=== PATIENT | female | born 1945 | race Two or more races ===

== ENCOUNTER 2018-06-13 14:08 | Inpatient (IN) | payer MEDICARE, MEDICAID, OTHER ==
[~2018-06-13] VITALS: Ht 153.4 cm; Wt 68.9 kg
[2018-06-13] MEDS ORDERED: ACETAMINOPHEN 325MG TABLET PO STA (14:35)
[2018-06-13] MEDS ORDERED: SODIUM CHLORIDE 0.9% 1000ML BAG (SEPSIS BOLUS) IV ONE (14:45)
[2018-06-13 15:18] LABS: HEMATOCRIT. 37.3 % (36.0-48.0); HEMOGLOBIN. 12.9 g/dL (12.0-16.0); MEAN CORPUSCULAR HEMOGLOBIN 35.6 pg (28.0-32.0); MEAN CORPUSCULAR VOLUME 102.6 fL (81.0-99.0); MEAN PLATELET VOLUME 7.9 fl (7.4-10.4); PLATELET 161 x1000/uL (130-400); RED BLOOD CELL COUNT 3.63 mill/uL (4.2-5.4); RED CELL DISTRIBUTION WIDTH 11.9 % (11.6-14.6)
[2018-06-13 15:25] LABS: CHLORIDE 100 mEq/L (98-107); INR 1.1; PARTIAL THROMBOPLASTIN TIME 29.4 sec (23.4-31.0); PROTHROMBIN TIME 10.7 sec (9.1-11.1)
[2018-06-13 15:45] LABS: PLATELET ESTIMATE NORMAL
[2018-06-13] MEDS ORDERED: OSELTAMIVIR 75MG CAPSULE PO ONE (16:00)
[2018-06-13 16:22] LABS: CLARITY URINE CLEAR (CLEAR); COLOR URINE YELLOW (YELLOW); KETONES URINE TRACE (NEGATIVE); LEUKOCYTE ESTERASE URINE 1+ (NEGATIVE); NITRITE URINE NEGATIVE (NEGATIVE); OCCULT BLOOD URINE 1+ (NEGATIVE); PH URINE 5.5 (4.5-8.0); PROTEIN URINE NEGATIVE (NEGATIVE); SPECIFIC GRAVITY URINE 1.011 (1.005-1.030); UROBILINOGEN URINE 0.2 E.U./dL (0.2-1.0)
[2018-06-13] MEDS ORDERED: MORPHINE SULFATE 4 MG/ML CPJ (NOT FOR IM USE) IV STA (16:40)
[2018-06-13] MEDS ORDERED: ONDANSETRON HCL 4MG/2ML INJ IV STA (16:40)
[2018-06-13] MEDS ORDERED: LEVOFLOXACIN 750MG PREMIX 150 ML IV ONE (16:45)
[2018-06-13] MEDS ORDERED: ENOXAPARIN 80MG/0.8ML SYR SUBCUT ONE (16:45)
[2018-06-13] MEDS ORDERED: ASPIRIN 325MG EC TABLET PO ONE (16:45)
[2018-06-13] MEDS ORDERED: NITROGLYCERIN 0.4MG TABLET SL SL PRN (17:45)
[2018-06-13] MEDS ORDERED: CLONIDINE 0.1MG TABLET PO PRN (17:45)
[2018-06-13] MEDS ORDERED: MAGNESIUM/ALUMINUM HYDROXIDE/SIMETHICONE 30ML UDC PO PRN (17:45)
[2018-06-13] MEDS ORDERED: DOCUSATE SODIUM 100MG CAPSULE PO PRN (17:45)
[2018-06-13] MEDS ORDERED: DEXTROSE 50% WATER 50ML SYRINGE IV PRN (17:45)
[2018-06-13] MEDS ORDERED: GUAIFENESIN 200MG/10ML SUGAR FREE UDC PO PRN (17:45)
[2018-06-13] MEDS ORDERED: ACETAMINOPHEN 325MG TABLET PO PRN (17:45)
[2018-06-13] MEDS ORDERED: IPRATROPIUM/ALBUTEROL 0.5-3(2.5)MG/3ML NEB INH PRN (17:45)
[2018-06-13 21:00] VITALS: BP 80/58
[2018-06-13] MEDS: INSULIN LISPRO 100 UNITS/ML SUBCUT SCH (21:00)
[2018-06-13] MEDS ORDERED: ZOLPIDEM TARTRATE 5MG TABLET PO PRN (21:30)
[2018-06-13] MEDS: BLOOD SUGAR DIAGNOSTIC STRIP TEST SCH (21:56)
[2018-06-13 22:00] VITALS: BP_SYST 100; BP_SYST 160; BP_DIAS 84; BP_DIAS 89
[2018-06-13] MEDS: ASCORBIC ACID 500 MG TABLET PO SCH (22:15)
[2018-06-13] MEDS: FAMOTIDINE 20MG TABLET PO SCH (22:15)
[2018-06-13] MEDS: CEFTRIAXONE 1 G PREMIX 50 ML IV SCH (22:23)
[2018-06-13] MEDS: SODIUM CHLORIDE 0.9% 1,000 ML IV SCH (22:23)
[2018-06-13] MEDS ORDERED: ENOXAPARIN 60MG/0.6ML SYR SUBCUT SCH (22:30)
[2018-06-13] MEDS ORDERED: SODIUM CHLORIDE 0.9% 100 ML IV ONE (23:00)
[2018-06-13] MEDS ORDERED: SODIUM CHLORIDE 0.9% 500 ML IV ONE (23:15)
[2018-06-14] VITALS (12 sets, daily range): BP systolic 90–136; BP diastolic 41–81
[2018-06-14] MEDS: ALBUMIN HUMAN 25GM/100ML (25%) IV SCH ×3 (01:05→16:20)
[2018-06-14] MEDS ORDERED: FURO20TA4 MT (01:59)
[2018-06-14] MEDS ORDERED: OMEP20CA10 MT (01:59)
[2018-06-14] MEDS ORDERED: ASPI-1159 MT (01:59)
[2018-06-14] MEDS ORDERED: GABA-529 MT (01:59)
[2018-06-14] MEDS ORDERED: SIMV40TA5 MT (01:59)
[2018-06-14] MEDS ORDERED: METF-815 MT (01:59)
[2018-06-14] MEDS: SODIUM CHLORIDE 0.9% 1,000 ML IV SCH ×2 (06:54→18:44)
[2018-06-14] MEDS: INSULIN LISPRO 100 UNITS/ML SUBCUT SCH ×4 (07:53→20:53)
[2018-06-14] MEDS: BLOOD SUGAR DIAGNOSTIC STRIP TEST SCH ×4 (07:53→20:32)
[2018-06-14] MEDS: FAMOTIDINE 20MG TABLET PO SCH ×2 (08:41→20:31)
[2018-06-14] MEDS: ASCORBIC ACID 500 MG TABLET PO SCH ×2 (08:41→20:31)
[2018-06-14] MEDS: ZINC SULFATE 220 MG ( 50 ) CAPSULE PO SCH (08:41)
[2018-06-14] MEDS: ASPIRIN 325MG EC TABLET PO SCH (08:41)
[2018-06-14] MEDS: TRAMADOL 50MG TABLET PO PRN ×2 (08:41→13:43)
[2018-06-14] MEDS: ONDANSETRON HCL 4MG/2ML INJ IV PRN ×3 (09:46→20:13)
[2018-06-14] MEDS: ENOXAPARIN 80MG/0.8ML SYR SUBCUT SCH ×2 (11:54→23:00)
[2018-06-14] MEDS ORDERED: PNEUMOCOCCAL 23-VAL P-SAC VAC 0.5 ML IM ONE (12:00)
[2018-06-14 12:01] LABS: BASOPHILS % 0.3 % (0.0-2.0); EOSINOPHILS % 0.3 % (0.0-5.0); HEMATOCRIT. 29.4 % (36.0-48.0); HEMOGLOBIN. 10.2 g/dL (12.0-16.0); LYMPHOCYTES % 9.8 % (20.0-50.0); MEAN CORPUSCULAR VOLUME 103.5 fL (81.0-99.0); MEAN PLATELET VOLUME 7.8 fl (7.4-10.4); MONOCYTES % 9.7 % (2.0-8.0); NEUTROPHILS % 79.9 % (40.0-76.0); PLATELET 113 x1000/uL (130-400); RED BLOOD CELL COUNT 2.84 mill/uL (4.2-5.4); RED CELL DISTRIBUTION WIDTH 11.9 % (11.6-14.6)
[2018-06-14 12:33] LABS: CHLORIDE 107 mEq/L (98-107)
[2018-06-14] MEDS: MORPHINE SULFATE 4 MG/ML CPJ (NOT FOR IM USE) IV PRN (14:41)
[2018-06-14] MEDS ORDERED: LEVOFLOXACIN 500MG PREMIX 100 ML IV SCH (17:30)
[2018-06-14] MEDS ORDERED: MAGNESIUM 2 G PREMIX 50 ML IV NR (18:30)
[2018-06-14] MEDS: LEVOFLOXACIN 500MG PREMIX 100 ML IV SCH (20:31)
[2018-06-15] VITALS (43 sets, daily range): BP systolic 77–212; BP diastolic 17–142
[2018-06-15] MEDS: CEFTRIAXONE 1 G PREMIX 50 ML IV SCH (00:58)
[2018-06-15] MEDS: ONDANSETRON HCL 4MG/2ML INJ IV PRN ×2 (05:51→10:45)
[2018-06-15 07:55] LABS: BASOPHILS % 0.1 % (0.0-2.0); HEMATOCRIT. 28.3 % (36.0-48.0); HEMOGLOBIN. 9.7 g/dL (12.0-16.0); LYMPHOCYTES % 8.1 % (20.0-50.0); MEAN CORPUSCULAR HEMOGLOBIN 35.2 pg (28.0-32.0); MEAN CORPUSCULAR VOLUME 103.1 fL (81.0-99.0); MEAN PLATELET VOLUME 8.2 fl (7.4-10.4); MONOCYTES % 7.1 % (2.0-8.0); NEUTROPHILS % 84.7 % (40.0-76.0); PLATELET 120 x1000/uL (130-400); RED BLOOD CELL COUNT 2.74 mill/uL (4.2-5.4); RED CELL DISTRIBUTION WIDTH 11.7 % (11.6-14.6)
[2018-06-15 07:57] LABS: CHLORIDE 103 mEq/L (98-107)
[2018-06-15] MEDS: BLOOD SUGAR DIAGNOSTIC STRIP TEST SCH ×4 (07:58→21:31)
[2018-06-15] MEDS: ASCORBIC ACID 500 MG TABLET PO SCH ×2 (08:00→21:27)
[2018-06-15] MEDS: ASPIRIN 325MG EC TABLET PO SCH (08:00)
[2018-06-15] MEDS: FAMOTIDINE 20MG TABLET PO SCH ×2 (08:00→21:27)
[2018-06-15] MEDS: ZINC SULFATE 220 MG ( 50 ) CAPSULE PO SCH (08:00)
[2018-06-15] MEDS: INSULIN LISPRO 100 UNITS/ML SUBCUT SCH ×4 (08:00→21:31)
[2018-06-15] MEDS: SODIUM CHLORIDE 0.9% 1,000 ML IV SCH ×2 (09:10→22:54)
[2018-06-15] MEDS ORDERED: HEPARIN SODIUM 1,000 UNIT/1ML VIAL IV ONE (10:11)
[2018-06-15] MEDS: ENOXAPARIN 80MG/0.8ML SYR SUBCUT SCH (11:42)
[2018-06-15] MEDS: METOCLOPRAMIDE HCL 5MG TABLET PO SCH ×2 (12:07→17:28)
[2018-06-15] MEDS: MORPHINE SULFATE 4 MG/ML CPJ (NOT FOR IM USE) IV PRN ×3 (13:01→22:07)
[2018-06-15] MEDS ORDERED: IOHEXOL-300 100 ML BOTTLE ONE ×2 (14:43→15:39)
[2018-06-15] MEDS ORDERED: LIDOCAINE HCL 1% 20ML VIAL (Pyxis) INJ ONE (14:44)
[2018-06-15] MEDS ORDERED: MIDAZOLAM HCL 2 MG/2 ML VIAL ONE (15:20)
[2018-06-15] MEDS ORDERED: FENTANYL CITRATE/PF 50MCG/ML 2ML VIAL ONE (15:21)
[2018-06-15] MEDS ORDERED: ATROPINE SULFATE 0.1MG/ML 10ML DISP.SYRIN ONE (15:41)
[2018-06-15] MEDS ORDERED: FUROSEMIDE 40MG/4ML VIAL ONE (15:50)
[2018-06-15] MEDS ORDERED: CLOPIDOGREL 75MG TABLET ONE (16:04)
[2018-06-15] MEDS ORDERED: ONDANSETRON HCL 4MG/2ML INJ IV PRN (16:15)
[2018-06-15] MEDS ORDERED: ATROPINE SULFATE 1MG/10ML SYR IV PRN (16:15)
[2018-06-15] MEDS ORDERED: ACETAMINOPHEN 325MG TABLET PO PRN (16:15)
[2018-06-15] MEDS: SODIUM CHLORIDE 0.45% 1,000 ML IV SCH (17:57)
[2018-06-15] MEDS: LEVOFLOXACIN 500MG PREMIX 100 ML IV SCH (19:24)
[2018-06-16] VITALS (48 sets, daily range): BP systolic 77–194; BP diastolic 44–123
[2018-06-16] MEDS: CEFTRIAXONE 1 G PREMIX 50 ML IV SCH (00:07)
[2018-06-16] MEDS: SODIUM CHLORIDE 0.45% 1,000 ML IV SCH (03:35)
[2018-06-16] MEDS: ONDANSETRON HCL 4MG/2ML INJ IV PRN (04:13)
[2018-06-16 06:42] LABS: BASOPHILS % 0.2 % (0.0-2.0); EOSINOPHILS % 0.1 % (0.0-5.0); HEMOGLOBIN. 9.3 g/dL (12.0-16.0); LYMPHOCYTES % 13.6 % (20.0-50.0); MEAN CORPUSCULAR VOLUME 101.2 fL (81.0-99.0); MEAN PLATELET VOLUME 7.8 fl (7.4-10.4); MONOCYTES % 11.3 % (2.0-8.0); NEUTROPHILS % 74.8 % (40.0-76.0); PLATELET 133 x1000/uL (130-400); RED BLOOD CELL COUNT 2.57 mill/uL (4.2-5.4)
[2018-06-16 06:59] LABS: CHLORIDE 103 mEq/L (98-107)
[2018-06-16] MEDS: BLOOD SUGAR DIAGNOSTIC STRIP TEST SCH ×4 (07:50→21:02)
[2018-06-16] MEDS: INSULIN LISPRO 100 UNITS/ML SUBCUT SCH ×4 (08:20→21:13)
[2018-06-16] MEDS: METOCLOPRAMIDE HCL 5MG TABLET PO SCH ×3 (09:05→17:47)
[2018-06-16] MEDS: ASPIRIN 325MG TABLET PO SCH (09:05)
[2018-06-16] MEDS: ZINC SULFATE 220 MG ( 50 ) CAPSULE PO SCH (09:05)
[2018-06-16] MEDS: FAMOTIDINE 20MG TABLET PO SCH ×2 (09:05→21:00)
[2018-06-16] MEDS: ASCORBIC ACID 500 MG TABLET PO SCH ×2 (09:05→21:00)
[2018-06-16] MEDS: CLOPIDOGREL 75MG TABLET PO SCH (09:05)
[2018-06-16] MEDS: CARVEDILOL 3.125 MG TABLET PO SCH ×2 (09:41→21:01)
[2018-06-16] MEDS: LEVOFLOXACIN 500MG TABLET PO SCH (17:47)
[2018-06-16] MEDS: ATORVASTATIN CALCIUM 10MG TABLET PO SCH (21:00)
[2018-06-17] VITALS (14 sets, daily range): BP systolic 85–125; BP diastolic 47–93
[2018-06-17] MEDS: BLOOD SUGAR DIAGNOSTIC STRIP TEST SCH ×4 (06:50→20:41)
[2018-06-17 07:10] LABS: BASOPHILS % 0.3 % (0.0-2.0); EOSINOPHILS % 0.5 % (0.0-5.0); HEMATOCRIT. 24.8 % (36.0-48.0); HEMOGLOBIN. 8.7 g/dL (12.0-16.0); MEAN CORPUSCULAR HEMOGLOBIN 35.9 pg (28.0-32.0); MEAN PLATELET VOLUME 8.1 fl (7.4-10.4); MONOCYTES % 12.1 % (2.0-8.0); NEUTROPHILS % 71.1 % (40.0-76.0); PLATELET 154 x1000/uL (130-400); RED BLOOD CELL COUNT 2.43 mill/uL (4.2-5.4); RED CELL DISTRIBUTION WIDTH 11.9 % (11.6-14.6)
[2018-06-17 07:45] LABS: CHLORIDE 106 mEq/L (98-107)
[2018-06-17] MEDS: FAMOTIDINE 20MG TABLET PO SCH ×2 (08:20→20:58)
[2018-06-17] MEDS: CLOPIDOGREL 75MG TABLET PO SCH (08:21)
[2018-06-17] MEDS: ASPIRIN 325MG TABLET PO SCH (08:21)
[2018-06-17] MEDS: ASCORBIC ACID 500 MG TABLET PO SCH ×2 (08:21→20:57)
[2018-06-17] MEDS: METOCLOPRAMIDE HCL 5MG TABLET PO SCH ×3 (08:21→18:14)
[2018-06-17] MEDS: ZINC SULFATE 220 MG ( 50 ) CAPSULE PO SCH (08:21)
[2018-06-17] MEDS: INSULIN LISPRO 100 UNITS/ML SUBCUT SCH ×4 (08:22→21:02)
[2018-06-17] MEDS: CARVEDILOL 3.125 MG TABLET PO SCH ×2 (09:00→21:00)
[2018-06-17] MEDS: CEFTRIAXONE 1 G PREMIX 50 ML IV SCH ×3 (11:46→23:12)
[2018-06-17] MEDS ORDERED: POTASSIUM CHLORIDE 20MEQ/PACKET PO NR (12:00)
[2018-06-17] MEDS: LEVOFLOXACIN 500MG TABLET PO SCH (18:16)
[2018-06-17] MEDS: ATORVASTATIN CALCIUM 10MG TABLET PO SCH (20:57)
[2018-06-18] VITALS (9 sets, daily range): BP systolic 106–143; BP diastolic 42–91
[2018-06-18] MEDS: BLOOD SUGAR DIAGNOSTIC STRIP TEST SCH ×2 (05:58→11:48)
[2018-06-18 07:48] LABS: HEMATOCRIT. 26.4 % (36.0-48.0); HEMOGLOBIN. 9.1 g/dL (12.0-16.0); MEAN CORPUSCULAR HEMOGLOBIN 35.3 pg (28.0-32.0); MEAN CORPUSCULAR VOLUME 102.4 fL (81.0-99.0); MEAN PLATELET VOLUME 7.8 fl (7.4-10.4); PLATELET 217 x1000/uL (130-400); RED BLOOD CELL COUNT 2.58 mill/uL (4.2-5.4)
[2018-06-18 08:00] LABS: CHLORIDE 106 mEq/L (98-107)
[2018-06-18] MEDS: FAMOTIDINE 20MG TABLET PO SCH (08:24)
[2018-06-18] MEDS: METOCLOPRAMIDE HCL 5MG TABLET PO SCH ×2 (08:24→12:35)
[2018-06-18] MEDS: ASPIRIN 325MG TABLET PO SCH (08:24)
[2018-06-18] MEDS: ASCORBIC ACID 500 MG TABLET PO SCH (08:24)
[2018-06-18] MEDS: INSULIN LISPRO 100 UNITS/ML SUBCUT SCH ×2 (08:24→12:34)
[2018-06-18] MEDS: CLOPIDOGREL 75MG TABLET PO SCH (08:24)
[2018-06-18] MEDS: ZINC SULFATE 220 MG ( 50 ) CAPSULE PO SCH (08:25)
[2018-06-18] MEDS: CARVEDILOL 3.125 MG TABLET PO SCH (09:00)
[2018-06-18] MEDS ORDERED: PNEUMOCOCCAL 23-VAL P-SAC VAC 0.5 ML IM ONE (14:30)
[2018-06-18 14:56] LABS: PLATELET ESTIMATE NORMAL
== END 2018-06-18 15:55 | DRG 246 ==
LOC: ER 14:08 → EDBEDREQSVC 16:43 → EDBEDREQ 16:43 → EDBEDREQTM 17:01 → SUPCPDRO 17:44 → ENRESERV 18:28 → 5EST 21:02 → CVICU 06-15 16:00 → 3WST 06-16 10:46
PROVIDERS: ADMIT Internal Medicine; ATTEND Internal Medicine
PROC: 027034Z Dilation of Coronary Artery, One Artery with Drug-eluting Intraluminal Device, Percutaneous Approach (ICD-10-PCS; principal; 2018-06-15)
PROC: 4A023N7 Measurement of Cardiac Sampling and Pressure, Left Heart, Percutaneous Approach (ICD-10-PCS; 2018-06-15)
PROC: B2111ZZ Fluoroscopy of Multiple Coronary Arteries using Low Osmolar Contrast (ICD-10-PCS; 2018-06-15)
DX: T82.855A Stenosis of coronary artery stent, initial encounter (principal); A41.9 Sepsis, unspecified organism; I21.4 Non-ST elevation (NSTEMI) myocardial infarction; G92 Toxic encephalopathy; N39.0 Urinary tract infection, site not specified; E44.1 Mild protein-calorie malnutrition; L97.919 Non-pressure chronic ulcer of unspecified part of right lower leg with unspecified severity; M48.56XA Collapsed vertebra, not elsewhere classified, lumbar region, initial encounter for fracture; E11.65 Type 2 diabetes mellitus with hyperglycemia; E87.6 Hypokalemia; E86.0 Dehydration; I10 Essential (primary) hypertension; D64.9 Anemia, unspecified; G89.29 Other chronic pain; I25.10 Atherosclerotic heart disease of native coronary artery without angina pectoris; I27.20 Pulmonary hypertension, unspecified; R26.9 Unspecified abnormalities of gait and mobility; S81.811A Laceration without foreign body, right lower leg, initial encounter; Y83.1 Surgical operation with implant of artificial internal device as the cause of abnormal reaction of the patient, or of later complication, without mention of misadventure at the time of the procedure; W01.0XXA Fall on same level from slipping, tripping and stumbling without subsequent striking against object, initial encounter; Y93.89 Activity, other specified; Y92.89 Other specified places as the place of occurrence of the external cause; Y99.8 Other external cause status; Z82.49 Family history of ischemic heart disease and other diseases of the circulatory system; Z86.73 Personal history of transient ischemic attack (TIA), and cerebral infarction without residual deficits; I25.2 Old myocardial infarction; Z79.899 Other long term (current) drug therapy; Z79.82 Long term (current) use of aspirin; Z79.4 Long term (current) use of insulin; Z79.02 Long term (current) use of antithrombotics/antiplatelets; Z83.3 Family history of diabetes mellitus; Z68.29 Body mass index [BMI] 29.0-29.9, adult; Z95.1 Presence of aortocoronary bypass graft
CPT/HCPCS: 36415; 71045; 72070; 72100; 72148; 73521; 73610; 80048; 80061; 82962; 83036; 83605; 83735; 84145; 84484; 85347; 87804; 90732; 92610; 92928; 93005; 93306; 93458; 93970; 96374; 97116; 97162; 97164; 97166; 97168; 97530; 99285; C1725; C1760; C1769; C1874; C1887; C1893; J0461; J0696; J1644; J1650; J1815; J1940; J1956; J2250; J2270; J2405; J3010; J3475; J3490; J7030; J7050; J7620; J8597; P9047; Q9967; A4315

== ENCOUNTER 2018-06-18 16:00 | Inpatient (IN) | payer MEDICARE, MEDICAID ==
[~2018-06-18] VITALS: Ht 162.6 cm; Wt 67.8 kg
[2018-06-18 16:00] VITALS: BP 109/70
[~2018-06-18 16:00] MED LIST: ASPI-1159 MT; ASPIRIN 325MG TABLET PO SCH; FURO20TA4 MT; GABA-529 MT; METF-815 MT; OMEP20CA10 MT; SIMV40TA5 MT
[2018-06-18] MEDS ORDERED: DEXTROSE 50% WATER 50ML SYRINGE IV PRN (17:15)
[2018-06-18] MEDS ORDERED: MAGNESIUM/ALUMINUM HYDROXIDE/SIMETHICONE 30ML UDC PO PRN (18:00)
[2018-06-18] MEDS ORDERED: NITROGLYCERIN 0.4MG TABLET SL SL PRN (18:00)
[2018-06-18] MEDS ORDERED: MORPHINE SULFATE 4 MG/ML CPJ (NOT FOR IM USE) IV PRN (18:00)
[2018-06-18] MEDS ORDERED: IPRATROPIUM/ALBUTEROL 0.5-3(2.5)MG/3ML NEB HHN PRN (18:00)
[2018-06-18] MEDS ORDERED: GUAIFENESIN 200MG/10ML SUGAR FREE UDC PO PRN (18:00)
[2018-06-18] MEDS ORDERED: ZOLPIDEM TARTRATE 5MG TABLET PO PRN (18:00)
[2018-06-18] MEDS ORDERED: CLONIDINE 0.1MG TABLET PO PRN (18:00)
[2018-06-18] MEDS ORDERED: ONDANSETRON HCL 4MG TABLET PO PRN (18:00)
[2018-06-18] MEDS ORDERED: TRAMADOL 50MG TABLET PO PRN (18:00)
[2018-06-18] MEDS ORDERED: DOCUSATE SODIUM 100MG CAPSULE PO PRN (18:00)
[2018-06-18 18:38] VITALS: BP 109/70
[2018-06-18 19:54] LABS: CLARITY URINE CLOUDY (CLEAR); COLOR URINE YELLOW (YELLOW); KETONES URINE NEGATIVE (NEGATIVE); LEUKOCYTE ESTERASE URINE TRACE (NEGATIVE); NITRITE URINE NEGATIVE (NEGATIVE); OCCULT BLOOD URINE NEGATIVE (NEGATIVE); PROTEIN URINE NEGATIVE (NEGATIVE); SPECIFIC GRAVITY URINE 1.005 (1.005-1.030); UROBILINOGEN URINE 0.2 E.U./dL (0.2-1.0)
[2018-06-18 20:00] VITALS: BP 104/64
[2018-06-18] MEDS ORDERED: INFLUENZA VIRUS VACCINE(AFLURIA) 0.5ML SYR IM ONE (20:45)
[2018-06-18] MEDS: CARVEDILOL 3.125 MG TABLET PO SCH (21:00)
[2018-06-18] MEDS: BLOOD SUGAR DIAGNOSTIC STRIP TEST SCH (21:45)
[2018-06-18] MEDS: FAMOTIDINE 20MG TABLET PO SCH (23:08)
[2018-06-18] MEDS: ASCORBIC ACID 500 MG TABLET PO SCH (23:08)
[2018-06-18] MEDS: ATORVASTATIN CALCIUM 10MG TABLET PO SCH (23:08)
[2018-06-18] MEDS: INSULIN LISPRO 100 UNITS/ML SUBCUT SCH (23:10)
[2018-06-18] MEDS: CEFTRIAXONE 1 G PREMIX 50 ML IV SCH (23:11)
[2018-06-19] MEDS: BLOOD SUGAR DIAGNOSTIC STRIP TEST SCH ×4 (06:12→21:31)
[2018-06-19] MEDS: INSULIN LISPRO 100 UNITS/ML SUBCUT SCH ×4 (06:22→21:31)
[2018-06-19 07:26] LABS: BASOPHILS % 0.7 % (0.0-2.0); EOSINOPHILS % 1.7 % (0.0-5.0); HEMATOCRIT. 28.6 % (36.0-48.0); HEMOGLOBIN. 9.8 g/dL (12.0-16.0); LYMPHOCYTES % 22.1 % (20.0-50.0); MEAN CORPUSCULAR HEMOGLOBIN 35.9 pg (28.0-32.0); MEAN CORPUSCULAR VOLUME 104.1 fL (81.0-99.0); MEAN PLATELET VOLUME 7.5 fl (7.4-10.4); MONOCYTES % 9.2 % (2.0-8.0); NEUTROPHILS % 66.3 % (40.0-76.0); PLATELET 269 x1000/uL (130-400); RED BLOOD CELL COUNT 2.74 mill/uL (4.2-5.4); RED CELL DISTRIBUTION WIDTH 12.1 % (11.6-14.6)
[2018-06-19 07:29] LABS: CHLORIDE 109 mEq/L (98-107)
[2018-06-19 08:00] VITALS: BP 118/52
[2018-06-19 08:23] VITALS: BP 116/58
[2018-06-19] MEDS: ASPIRIN 325MG TABLET PO SCH (08:31)
[2018-06-19] MEDS: ZINC SULFATE 220 MG ( 50 ) CAPSULE PO SCH (08:31)
[2018-06-19] MEDS: ASCORBIC ACID 500 MG TABLET PO SCH ×2 (08:31→20:59)
[2018-06-19] MEDS: CLOPIDOGREL 75MG TABLET PO SCH (08:31)
[2018-06-19] MEDS: CARVEDILOL 3.125 MG TABLET PO SCH ×2 (08:32→21:00)
[2018-06-19] MEDS: FAMOTIDINE 20MG TABLET PO SCH ×2 (08:32→20:59)
[2018-06-19] MEDS: METOCLOPRAMIDE 10MG/10 ML UDC PO SCH ×3 (09:56→17:49)
[2018-06-19] MEDS: LEVOFLOXACIN 500MG TABLET PO SCH (12:23)
[2018-06-19 20:00] VITALS: BP 106/52
[2018-06-19] MEDS: ATORVASTATIN CALCIUM 10MG TABLET PO SCH (20:59)
[2018-06-19] MEDS: CEFTRIAXONE 1 G PREMIX 50 ML IV SCH (20:59)
[2018-06-19] MEDS: POLYETHYLENE GLYCOL 3350 (17GM) 1 DOSE PACK PO SCH (21:01)
[2018-06-20] MEDS: BLOOD SUGAR DIAGNOSTIC STRIP TEST SCH ×4 (06:30→21:55)
[2018-06-20 06:40] LABS: BASOPHILS % 0.7 % (0.0-2.0); CHLORIDE 108 mEq/L (98-107); EOSINOPHILS % 1.8 % (0.0-5.0); HEMATOCRIT. 28.1 % (36.0-48.0); HEMOGLOBIN. 9.6 g/dL (12.0-16.0); LYMPHOCYTES % 21.9 % (20.0-50.0); MEAN CORPUSCULAR HEMOGLOBIN 35.7 pg (28.0-32.0); MEAN PLATELET VOLUME 7.3 fl (7.4-10.4); MONOCYTES % 8.6 % (2.0-8.0); PLATELET 294 x1000/uL (130-400); RED CELL DISTRIBUTION WIDTH 12.4 % (11.6-14.6)
[2018-06-20 06:52] LABS: PHOSPHORUS 2.7 mg/dL (2.5-4.9)
[2018-06-20 06:53] LABS: TOTAL IRON BINDING CAPACITY 191 ug/dL (250-450)
[2018-06-20 07:27] LABS: FOLIC ACID (FOLATE) SERUM 14.6 ng/mL (>5.38)
[2018-06-20] MEDS: INSULIN LISPRO 100 UNITS/ML SUBCUT SCH ×4 (07:30→22:24)
[2018-06-20 08:00] VITALS: BP 121/75
[2018-06-20] MEDS: ZINC SULFATE 220 MG ( 50 ) CAPSULE PO SCH (08:28)
[2018-06-20] MEDS: METOCLOPRAMIDE 10MG/10 ML UDC PO SCH ×3 (08:28→16:10)
[2018-06-20] MEDS: DOCUSATE SODIUM 100MG CAPSULE PO SCH ×2 (08:28→16:10)
[2018-06-20] MEDS: CLOPIDOGREL 75MG TABLET PO SCH (08:28)
[2018-06-20] MEDS: CARVEDILOL 3.125 MG TABLET PO SCH ×2 (08:28→21:00)
[2018-06-20] MEDS: ASCORBIC ACID 500 MG TABLET PO SCH ×2 (08:28→21:55)
[2018-06-20] MEDS: ASPIRIN 325MG TABLET PO SCH (09:40)
[2018-06-20] MEDS: FAMOTIDINE 20MG TABLET PO SCH ×2 (09:40→21:55)
[2018-06-20] MEDS: LEVOFLOXACIN 500MG TABLET PO SCH (10:57)
[2018-06-20] MEDS: ACETAMINOPHEN 650MG/20.3ML UDC PO PRN (11:30)
[2018-06-20 12:00] VITALS: BP 117/47
[2018-06-20] MEDS ORDERED: LACTULOSE 20G/30ML UDC PO SCH (18:07)
[2018-06-20] MEDS ORDERED: NA PHOS,M-B/NA PHOS,DI-BA ENEMA 118ML PR PRN (18:15)
[2018-06-20 20:00] VITALS: BP 100/45
[2018-06-20] MEDS ORDERED: POLYETHYLENE GLYCOL 3350 (17GM) 1 DOSE PACK PO SCH (21:00)
[2018-06-20] MEDS: POLYETHYLENE GLYCOL 3350 (17GM) 1 DOSE PACK PO SCH (21:00)
[2018-06-20] MEDS: CEFTRIAXONE 1 G PREMIX 50 ML IV SCH (21:55)
[2018-06-20] MEDS: ATORVASTATIN CALCIUM 10MG TABLET PO SCH (21:55)
[2018-06-20] MEDS: LACTULOSE 20G/30ML UDC PO SCH ×2 (22:00→22:33)
[2018-06-21] MEDS: ACETAMINOPHEN 650MG/20.3ML UDC PO PRN (00:03)
[2018-06-21] MEDS: BLOOD SUGAR DIAGNOSTIC STRIP TEST SCH ×4 (06:00→21:49)
[2018-06-21] MEDS: INSULIN LISPRO 100 UNITS/ML SUBCUT SCH ×4 (06:12→22:09)
[2018-06-21 08:00] VITALS: BP 103/58
[2018-06-21] MEDS ORDERED: LACTULOSE 20G/30ML UDC PO SCH (08:00)
[2018-06-21 08:36] LABS: BASOPHILS % 0.8 % (0.0-2.0); EOSINOPHILS % 2.2 % (0.0-5.0); HEMATOCRIT. 29.4 % (36.0-48.0); HEMOGLOBIN. 10.2 g/dL (12.0-16.0); LYMPHOCYTES % 28.4 % (20.0-50.0); MEAN CORPUSCULAR HEMOGLOBIN 36.1 pg (28.0-32.0); MEAN CORPUSCULAR VOLUME 104.5 fL (81.0-99.0); MEAN PLATELET VOLUME 7.2 fl (7.4-10.4); MONOCYTES % 10.1 % (2.0-8.0); NEUTROPHILS % 58.5 % (40.0-76.0); PLATELET 337 x1000/uL (130-400); RED BLOOD CELL COUNT 2.82 mill/uL (4.2-5.4); RED CELL DISTRIBUTION WIDTH 12.4 % (11.6-14.6)
[2018-06-21] MEDS: DOCUSATE SODIUM 100MG CAPSULE PO SCH ×2 (08:44→16:59)
[2018-06-21] MEDS: FAMOTIDINE 20MG TABLET PO SCH ×2 (08:44→21:53)
[2018-06-21] MEDS: METOCLOPRAMIDE 10MG/10 ML UDC PO SCH ×3 (08:44→16:59)
[2018-06-21] MEDS: ASCORBIC ACID 500 MG TABLET PO SCH ×2 (08:45→21:53)
[2018-06-21] MEDS: ASPIRIN 325MG TABLET PO SCH (08:45)
[2018-06-21] MEDS: ZINC SULFATE 220 MG ( 50 ) CAPSULE PO SCH (08:45)
[2018-06-21] MEDS: CLOPIDOGREL 75MG TABLET PO SCH (08:45)
[2018-06-21] MEDS: CARVEDILOL 3.125 MG TABLET PO SCH ×2 (09:00→21:00)
[2018-06-21] MEDS ORDERED: DOCUSATE SODIUM 100MG CAPSULE PO SCH (09:00)
[2018-06-21] MEDS: LEVOFLOXACIN 500MG TABLET PO SCH (11:15)
[2018-06-21 11:51] LABS: CHLORIDE 109 mEq/L (98-107)
[2018-06-21] MEDS ORDERED: SODIUM CHLORIDE 0.9% 250 ML IV ONE (12:00)
[2018-06-21] MEDS ORDERED: NA PHOS,M-B/NA PHOS,DI-BA ENEMA 118ML PR NR (12:45)
[2018-06-21] MEDS ORDERED: SODIUM CHLORIDE 0.9% 500 ML IV SCH (14:45)
[2018-06-21] MEDS ORDERED: SODIUM CHLORIDE 0.9% 500 ML IV ONE (15:45)
[2018-06-21 18:32] VITALS: BP 119/55
[2018-06-21 20:00] VITALS: BP 99/47
[2018-06-21] MEDS: POLYETHYLENE GLYCOL 3350 (17GM) 1 DOSE PACK PO SCH (21:00)
[2018-06-21] MEDS: ATORVASTATIN CALCIUM 10MG TABLET PO SCH (21:53)
[2018-06-22] MEDS: BLOOD SUGAR DIAGNOSTIC STRIP TEST SCH ×4 (06:18→21:26)
[2018-06-22] MEDS: INSULIN LISPRO 100 UNITS/ML SUBCUT SCH ×4 (06:48→21:38)
[2018-06-22 08:11] VITALS: BP 99/58
[2018-06-22] MEDS: CARVEDILOL 3.125 MG TABLET PO SCH ×2 (09:00→20:52)
[2018-06-22] MEDS: DOCUSATE SODIUM 100MG CAPSULE PO SCH ×2 (09:25→17:17)
[2018-06-22] MEDS: ZINC SULFATE 220 MG ( 50 ) CAPSULE PO SCH (09:25)
[2018-06-22] MEDS: CLOPIDOGREL 75MG TABLET PO SCH (09:25)
[2018-06-22] MEDS: ASPIRIN 325MG TABLET PO SCH (09:25)
[2018-06-22] MEDS: FAMOTIDINE 20MG TABLET PO SCH ×2 (09:26→20:52)
[2018-06-22] MEDS: ASCORBIC ACID 500 MG TABLET PO SCH ×2 (09:26→20:52)
[2018-06-22] MEDS: METOCLOPRAMIDE 10MG/10 ML UDC PO SCH ×3 (09:26→17:17)
[2018-06-22 20:00] VITALS: BP 124/81
[2018-06-22] MEDS: ATORVASTATIN CALCIUM 10MG TABLET PO SCH (20:52)
[2018-06-22] MEDS: POLYETHYLENE GLYCOL 3350 (17GM) 1 DOSE PACK PO SCH (20:52)
[2018-06-23] MEDS: BLOOD SUGAR DIAGNOSTIC STRIP TEST SCH ×4 (06:20→21:42)
[2018-06-23] MEDS: INSULIN LISPRO 100 UNITS/ML SUBCUT SCH ×4 (06:41→21:46)
[2018-06-23 07:49] LABS: BASOPHILS % 0.7 % (0.0-2.0); EOSINOPHILS % 1.6 % (0.0-5.0); HEMATOCRIT. 30.3 % (36.0-48.0); HEMOGLOBIN. 10.3 g/dL (12.0-16.0); LYMPHOCYTES % 20.7 % (20.0-50.0); MEAN CORPUSCULAR HEMOGLOBIN 35.9 pg (28.0-32.0); MEAN CORPUSCULAR VOLUME 105.6 fL (81.0-99.0); MEAN PLATELET VOLUME 7.2 fl (7.4-10.4); MONOCYTES % 8.2 % (2.0-8.0); NEUTROPHILS % 68.8 % (40.0-76.0); PLATELET 333 x1000/uL (130-400); RED BLOOD CELL COUNT 2.87 mill/uL (4.2-5.4); RED CELL DISTRIBUTION WIDTH 12.8 % (11.6-14.6)
[2018-06-23] MEDS ORDERED: NA PHOS,M-B/NA PHOS,DI-BA ENEMA 118ML PR SCH (08:15)
[2018-06-23] MEDS ORDERED: NA PHOS,M-B/NA PHOS,DI-BA ENEMA 118ML PR PRN (08:15)
[2018-06-23 08:20] VITALS: BP 102/56
[2018-06-23] MEDS: DOCUSATE SODIUM 100MG CAPSULE PO SCH ×2 (08:26→16:59)
[2018-06-23] MEDS: CLOPIDOGREL 75MG TABLET PO SCH (08:26)
[2018-06-23] MEDS: ZINC SULFATE 220 MG ( 50 ) CAPSULE PO SCH (08:26)
[2018-06-23] MEDS: METOCLOPRAMIDE 10MG/10 ML UDC PO SCH ×3 (08:26→16:59)
[2018-06-23] MEDS: ASCORBIC ACID 500 MG TABLET PO SCH ×2 (08:26→21:41)
[2018-06-23] MEDS: FAMOTIDINE 20MG TABLET PO SCH ×2 (08:26→21:41)
[2018-06-23] MEDS: ASPIRIN 325MG TABLET PO SCH (08:26)
[2018-06-23] MEDS: LACTULOSE 20G/30ML UDC PO SCH ×3 (08:27→17:00)
[2018-06-23] MEDS: CARVEDILOL 3.125 MG TABLET PO SCH ×2 (08:27→21:00)
[2018-06-23 08:29] LABS: CHLORIDE 108 mEq/L (98-107)
[2018-06-23 20:00] VITALS: BP 90/50
[2018-06-23 21:00] VITALS: BP 101/57
[2018-06-23] MEDS: POLYETHYLENE GLYCOL 3350 (17GM) 1 DOSE PACK PO SCH (21:00)
[2018-06-23] MEDS: ATORVASTATIN CALCIUM 10MG TABLET PO SCH (21:41)
[2018-06-24] MEDS: BLOOD SUGAR DIAGNOSTIC STRIP TEST SCH ×4 (05:49→21:00)
[2018-06-24] MEDS: INSULIN LISPRO 100 UNITS/ML SUBCUT SCH ×4 (05:52→22:37)
[2018-06-24 08:27] VITALS: BP 120/56
[2018-06-24] MEDS: CARVEDILOL 3.125 MG TABLET PO SCH ×2 (09:00→21:00)
[2018-06-24] MEDS: CLOPIDOGREL 75MG TABLET PO SCH (09:21)
[2018-06-24] MEDS: ASPIRIN 325MG TABLET PO SCH (09:21)
[2018-06-24] MEDS: ZINC SULFATE 220 MG ( 50 ) CAPSULE PO SCH (09:21)
[2018-06-24] MEDS: METOCLOPRAMIDE 10MG/10 ML UDC PO SCH ×3 (09:21→18:01)
[2018-06-24] MEDS: DOCUSATE SODIUM 100MG CAPSULE PO SCH ×2 (09:21→18:01)
[2018-06-24] MEDS: ASCORBIC ACID 500 MG TABLET PO SCH ×2 (09:21→22:33)
[2018-06-24] MEDS: FAMOTIDINE 20MG TABLET PO SCH ×2 (09:21→22:33)
[2018-06-24 13:06] LABS: 25-HYDROXY VITAMIN D3 17 ng/mL (.)
[2018-06-24] MEDS ORDERED: ERGOCALCIFEROL 50000UNITS CAPSULE PO SCH (15:45)
[2018-06-24 20:00] VITALS: BP 127/87
[2018-06-24] MEDS: ATORVASTATIN CALCIUM 10MG TABLET PO SCH (22:33)
[2018-06-24] MEDS: POLYETHYLENE GLYCOL 3350 (17GM) 1 DOSE PACK PO SCH (22:34)
[2018-06-25] MEDS: BLOOD SUGAR DIAGNOSTIC STRIP TEST SCH ×4 (06:03→21:25)
[2018-06-25] MEDS: INSULIN LISPRO 100 UNITS/ML SUBCUT SCH ×4 (06:11→22:22)
[2018-06-25] MEDS: METOCLOPRAMIDE 10MG/10 ML UDC PO SCH ×3 (08:10→17:01)
[2018-06-25] MEDS: FAMOTIDINE 20MG TABLET PO SCH ×2 (08:10→22:23)
[2018-06-25] MEDS: ASPIRIN 325MG TABLET PO SCH (08:10)
[2018-06-25] MEDS: DOCUSATE SODIUM 100MG CAPSULE PO SCH ×2 (08:10→17:01)
[2018-06-25] MEDS: ZINC SULFATE 220 MG ( 50 ) CAPSULE PO SCH (08:10)
[2018-06-25] MEDS: CLOPIDOGREL 75MG TABLET PO SCH (08:10)
[2018-06-25] MEDS: ASCORBIC ACID 500 MG TABLET PO SCH ×2 (08:10→22:23)
[2018-06-25] MEDS: CARVEDILOL 3.125 MG TABLET PO SCH ×2 (08:10→21:00)
[2018-06-25] MEDS ORDERED: LACTULOSE 20G/30ML UDC PO NR (14:15)
[2018-06-25 20:00] VITALS: BP 101/62
[2018-06-25] MEDS: POLYETHYLENE GLYCOL 3350 (17GM) 1 DOSE PACK PO SCH (21:00)
[2018-06-25 22:00] VITALS: BP 107/63
[2018-06-25] MEDS: ATORVASTATIN CALCIUM 10MG TABLET PO SCH (22:22)
[2018-06-26] MEDS: BLOOD SUGAR DIAGNOSTIC STRIP TEST SCH ×2 (06:41→11:15)
[2018-06-26] MEDS: INSULIN LISPRO 100 UNITS/ML SUBCUT SCH ×2 (06:42→12:59)
[2018-06-26 06:48] LABS: BASOPHILS % 0.7 % (0.0-2.0); EOSINOPHILS % 1.5 % (0.0-5.0); HEMATOCRIT. 29.1 % (36.0-48.0); HEMOGLOBIN. 9.9 g/dL (12.0-16.0); LYMPHOCYTES % 24.5 % (20.0-50.0); MEAN CORPUSCULAR HEMOGLOBIN 36.1 pg (28.0-32.0); MEAN CORPUSCULAR VOLUME 106.3 fL (81.0-99.0); MEAN PLATELET VOLUME 7.2 fl (7.4-10.4); MONOCYTES % 9.6 % (2.0-8.0); NEUTROPHILS % 63.7 % (40.0-76.0); PLATELET 296 x1000/uL (130-400); RED BLOOD CELL COUNT 2.73 mill/uL (4.2-5.4); RED CELL DISTRIBUTION WIDTH 13.7 % (11.6-14.6)
[2018-06-26 07:27] LABS: CHLORIDE 109 mEq/L (98-107)
[2018-06-26 08:00] VITALS: BP 112/63
[2018-06-26] MEDS: ASPIRIN 325MG TABLET PO SCH (08:51)
[2018-06-26] MEDS: FAMOTIDINE 20MG TABLET PO SCH (08:51)
[2018-06-26] MEDS: DOCUSATE SODIUM 100MG CAPSULE PO SCH (08:51)
[2018-06-26] MEDS: CLOPIDOGREL 75MG TABLET PO SCH (08:51)
[2018-06-26] MEDS: ASCORBIC ACID 500 MG TABLET PO SCH (08:51)
[2018-06-26] MEDS: ZINC SULFATE 220 MG ( 50 ) CAPSULE PO SCH (08:51)
[2018-06-26] MEDS: CARVEDILOL 3.125 MG TABLET PO SCH (08:52)
[2018-06-26] MEDS: METOCLOPRAMIDE 10MG/10 ML UDC PO SCH ×2 (08:52→12:42)
[2018-06-26] MEDS ORDERED: MULTIVITAMINS,THER W-MINERALS TABLET PO SCH (09:00)
[2018-06-26 11:33] VITALS: BP 112/63
== END 2018-06-26 15:30 | disposition home health service (06) | DRG 91 ==
PROVIDERS: ADMIT Physical Medicine & Rehabilitation Spinal Cord Injury Medicine; ATTEND Internal Medicine
DX: G92 Toxic encephalopathy (principal); I21.4 Non-ST elevation (NSTEMI) myocardial infarction; E44.0 Moderate protein-calorie malnutrition; I25.10 Atherosclerotic heart disease of native coronary artery without angina pectoris; I10 Essential (primary) hypertension; R53.81 Other malaise; R26.9 Unspecified abnormalities of gait and mobility; R50.9 Fever, unspecified; E55.9 Vitamin D deficiency, unspecified; E87.6 Hypokalemia; I95.9 Hypotension, unspecified; W18.39XA Other fall on same level, initial encounter; R41.89 Other symptoms and signs involving cognitive functions and awareness; D63.8 Anemia in other chronic diseases classified elsewhere; E78.00 Pure hypercholesterolemia, unspecified; E11.65 Type 2 diabetes mellitus with hyperglycemia; I27.20 Pulmonary hypertension, unspecified; Z95.5 Presence of coronary angioplasty implant and graft; Z86.73 Personal history of transient ischemic attack (TIA), and cerebral infarction without residual deficits; Z95.1 Presence of aortocoronary bypass graft; I25.2 Old myocardial infarction; Z79.899 Other long term (current) drug therapy; Z79.02 Long term (current) use of antithrombotics/antiplatelets; Z79.51 Long term (current) use of inhaled steroids; Z79.82 Long term (current) use of aspirin; Z82.49 Family history of ischemic heart disease and other diseases of the circulatory system; Z83.3 Family history of diabetes mellitus; Z87.440 Personal history of urinary (tract) infections; Z79.4 Long term (current) use of insulin; Z86.19 Personal history of other infectious and parasitic diseases; Z79.01 Long term (current) use of anticoagulants; Y93.89 Activity, other specified; Y92.091 Bathroom in other non-institutional residence as the place of occurrence of the external cause; Y99.8 Other external cause status; Z68.25 Body mass index [BMI] 25.0-25.9, adult
CPT/HCPCS: 36415; 74018; 80048; 82140; 82270; 82306; 82607; 82728; 82746; 82962; 83036; 83540; 83550; 83735; 84100; 84134; 84443; 84484; 92523; 92610; 93005; 93970; 97110; 97116; 97162; 97166; 97530; 97535; C1893; G0515; J0696; J1815; J7040; J7050; J7620; J8597